=== PATIENT | male | born 1955 | race Caucasian/White ===

== ENCOUNTER 2020-01-22 14:20 | Emergency (ER) | payer SELFPAY ==
[~2020-01-22] VITALS: Ht 165.1 cm; Wt 59.0 kg
[2020-01-22 14:40] VITALS: BP 135/78; Ht 165.1 cm; Wt 59.0 kg
== END 2020-01-22 17:24 | disposition home or self-care (01) ==
LOC: ED 14:20
DX: F10.129 Alcohol abuse with intoxication, unspecified (principal)